=== PATIENT | female | born 1990 | race Caucasian/White ===

== ENCOUNTER 2019-12-03 10:25 | Outpatient (CLI) | payer BC, SELFPAY ==
[2019-12-03] VITALS (7 sets, daily range): BP systolic 124–137; BP diastolic 76–95; PULSE 86–96
[2019-12-03 11:33] LABS: Basophils Percent Auto 0.3 % (0.2-1.2); Eosinophils Absolute Auto 0.1 K/mm3 (0-0.3); Eosinophils Percent Auto 0.5 % (0-4.4); Hemoglobin 11.6 g/dL (12.0-15.0); Immature Granulocyte Absolute 0.03 K/mm3 (0.00-0.031); Immature Granulocyte Percent A 0.3 % (0-0.5); Lymphocytes Percent Auto 24.2 % (18.3-44.2); Mean Corpuscular HGB Conc 33.1 g/dl (32-36); Mean Corpuscular Hemoglobin 29.4 pg (26-34); Mean Corpuscular Volume 88.6 fl (80-100); Mean Platelet Volume 11.8 fl (7.4-10.4); Monocytes Absolute Auto 0.5 K/mm3 (0.1-0.6); Monocytes Percent Auto 5.5 % (2.6-8.5); Neutrophils Absolute Auto 6.6 K/mm3 (1.3-6.7); Neutrophils Percent Auto 69.2 % (45.5-73.1); Platelet Count Result 205 k/mm3 (150-375); Red Blood Count 3.95 M/mm3 (4.2-5.4); Red Cell Distribution Width 13.3 % (11.5-14.5); White Blood Count 9.5 K/mm3 (4.5-10.0)
[2019-12-03 11:39] LABS: Add Urine Microscopic? YES; Appearance Urine Cloudy (Clear); Bacteria Urine 3+ /hpf; Bilirubin Urine Negative (Negative); Blood Urine Negative (Negative); Color Urine Yellow (Yellow); Glucose Urine UA 2+ mg/dL (Negative); Ketones Urine 1+ mg/dL (Negative); Leukocyte Esterase Ur Negative LEU/UL (NEGATIVE); Mucus Urine Moderate /lpf; Nitrate Urine Negative (Negative); Protein Urine 1+ mg/dL (Negative); RBC Urine 0-2 /hpf (0-2); Specific Grav Ur 1.019 (1.001-1.035); Squamous Epithelial Cell Urine Many /hpf (Few); Urobilinogen Urine Negative mg/dL (<2.0)
[2019-12-03 11:51] LABS: Alanine Aminotransferase 8 U/L (4-35); Albumin Level 3.5 g/dL (3.5-5.1); Alkaline Phosphatase 73 U/L (38-126); Aspartate Amino Transferase 15 U/L (14-36); Bilirubin,Total 0.6 mg/dL (0.2-1.3); Blood Urea Nitrogen 8 mg/dL (7-17); Carbon Dioxide 26 mmol/L (22-30); Chloride 103 mmol/L (98-107); Estimated Glomerular Filt Rate > 60; Glucose 124 mg/dL (65-105); Potassium 4.1 mmol/L (3.4-5.0); Sodium 133 mmol/L (137-145); Uric Acid 3.5 mg/dL (2.5-7.5)
--- NOTE | 2019-12-03 12:25 | PC.NURSE ---
Called Dr. Vivar with pt status. Informed of lab results, BPs. One contraction seen on monitor. Reactive tracing. States that she is starting to get a headache, but believes it is because she is hungry. Denies any other preeclamptic symptoms.
== END 2019-12-03 12:30 | disposition home or self-care (01) ==
LOC: ANHOBOP 10:28 → ANHOBPP 10:30
PROVIDERS: PCP Internal Medicine; Visit Provider Obstetrics & Gynecology
DX: O13.9 Gestational [pregnancy-induced] hypertension without significant proteinuria, unspecified trimester (principal); Z3A.00 Weeks of gestation of pregnancy not specified
CPT/HCPCS: 36415; 59025; 80053; 81001; 84550; 85025; 87086; 87088; 99199

== ENCOUNTER 2019-12-11 07:54 | Outpatient (RCR) | payer BC, SELFPAY ==
[2019-12-11 08:03] VITALS: BMI 34.9
[2019-12-11 08:12] VITALS: BMI 34.9
== END 2020-03-10 23:59 | disposition home or self-care (01) ==
LOC: ANHDMC 07:54
PROVIDERS: PCP Internal Medicine; Visit Provider Internal Medicine
DX: O24.410 Gestational diabetes mellitus in pregnancy, diet controlled (principal); Z71.3 Dietary counseling and surveillance; Z71.89 Other specified counseling; Z3A.30 30 weeks gestation of pregnancy
CPT/HCPCS: 97802; G0108

== ENCOUNTER 2020-01-13 08:55 | Outpatient (RCR) | payer BC, SELFPAY ==
[2019-12-23 12:54] VITALS: BP 145/97; PULSE 87
[2019-12-30 17:13] VITALS: BP 152/91; PULSE 78
[2020-01-07 13:03] VITALS: BP 163/98; PULSE 84
[2020-01-13 10:12] LABS: Basophils Percent Auto 0.2 % (0.2-1.2); Eosinophils Percent Auto 0.4 % (0-4.4); Hematocrit 39.9 % (37.0-47.0); Hemoglobin 13.7 g/dL (12.0-15.0); Immature Granulocyte Absolute 0.02 K/mm3 (0.00-0.031); Immature Granulocyte Percent A 0.2 % (0-0.5); Lymphocytes Absolute Auto 2.76 K/mm3 (0.9-3.2); Lymphocytes Percent Auto 33.2 % (18.3-44.2); Mean Corpuscular HGB Conc 34.3 g/dl (32-36); Mean Corpuscular Hemoglobin 29.5 pg (26-34); Mean Platelet Volume 12.7 fl (7.4-10.4); Monocytes Absolute Auto 0.6 K/mm3 (0.1-0.6); Monocytes Percent Auto 6.7 % (2.6-8.5); Neutrophils Absolute Auto 4.9 K/mm3 (1.3-6.7); Neutrophils Percent Auto 59.3 % (45.5-73.1); Platelet Count Result 142 k/mm3 (150-375); Red Blood Count 4.64 M/mm3 (4.2-5.4); Red Cell Distribution Width 13.4 % (11.5-14.5); White Blood Count 8.3 K/mm3 (4.5-10.0)
[2020-01-13 10:17] LABS: Add Urine Microscopic? YES; Appearance Urine Clear (Clear); Bacteria Urine 3+ /hpf; Bilirubin Urine Negative (Negative); Blood Urine Negative (Negative); Color Urine Straw (Yellow); Glucose Urine UA Negative (Negative); Ketones Urine Negative (Negative); Leukocyte Esterase Ur Negative LEU/UL (NEGATIVE); Nitrate Urine Negative (Negative); Protein Urine 2+ mg/dL (Negative); RBC Urine 0-2 /hpf (0-2); Squamous Epithelial Cell Urine Rare /hpf (Few); Urobilinogen Urine Negative mg/dL (<2.0); WBC Urine 0-3 /hpf (0-3)
[2020-01-13 10:25] LABS: Creatinine Urine 63.4 mg/dL
[2020-01-13 10:29] LABS: Alanine Aminotransferase 24 U/L (4-35); Albumin Level 3.3 g/dL (3.5-5.1); Alkaline Phosphatase 143 U/L (38-126); Aspartate Amino Transferase 38 U/L (14-36); Bilirubin,Total 0.5 mg/dL (0.2-1.3); Blood Urea Nitrogen 15 mg/dL (7-17); Calcium 8.9 mg/dL (8.4-10.2); Carbon Dioxide 23 mmol/L (22-30); Chloride 103 mmol/L (98-107); Estimated Glomerular Filt Rate > 60; Glucose 92 mg/dL (65-105); Potassium 3.9 mmol/L (3.4-5.0); Sodium 131 mmol/L (137-145); Uric Acid 5.8 mg/dL (2.5-7.5)
[2020-01-13 10:42] LABS: Total Protein Urine Random 236 mg/dL
[2020-01-13 10:45] VITALS: BP 167/98; PULSE 84
== END 2020-01-16 08:01 | disposition home or self-care (01) ==
LOC: ANHOBOP 08:55
PROVIDERS: PCP Internal Medicine; Visit Provider Obstetrics & Gynecology
DX: O24.419 Gestational diabetes mellitus in pregnancy, unspecified control (principal); O13.3 Gestational [pregnancy-induced] hypertension without significant proteinuria, third trimester; Z3A.32 32 weeks gestation of pregnancy; Z3A.33 33 weeks gestation of pregnancy; Z3A.34 34 weeks gestation of pregnancy; Z3A.35 35 weeks gestation of pregnancy
CPT/HCPCS: 36415; 59025; 80053; 81001; 82570; 84156; 84550; 85025; 87086

== ENCOUNTER 2020-01-15 02:00 | Inpatient (IN) | payer BC, SELFPAY ==
[2020-01-15] VITALS (139 sets, daily range): BP systolic 134–178; BP diastolic 79–113; PULSE 66–109; RESP 12–20; TEMP 36.3–37.1; O2SAT 91–100; BMI 36.2
--- NOTE | 2020-01-15 02:30 | PC.NURSE ---
pt states pt had a previous c/s r/t pre-eclampsia around 35 weeks of gestation. pt states pt has been dx w gdm and pt has been able to manage gdm w diet. pt states pt has had history of high bp during this and pt has been taking procardia 90mg xl daily as prescribed. pt denies any additional medical history. pt states pt brought in 24 hour urine protein specimen on 01/13 and has not heard back about results of test. pt states pt has had high bp during , but up until 01/14 has been asymptomatic.
[2020-01-15 03:47] LABS: Basophils Percent Auto 0.3 % (0.2-1.2); Eosinophils Percent Auto 0.2 % (0-4.4); Hematocrit 41.5 % (37.0-47.0); Hemoglobin 14.4 g/dL (12.0-15.0); Immature Granulocyte Absolute 0.02 K/mm3 (0.00-0.031); Immature Granulocyte Percent A 0.2 % (0-0.5); Lymphocytes Percent Auto 20.3 % (18.3-44.2); Mean Corpuscular HGB Conc 34.7 g/dl (32-36); Mean Corpuscular Hemoglobin 29.4 pg (26-34); Mean Corpuscular Volume 84.7 fl (80-100); Mean Platelet Volume 12.3 fl (7.4-10.4); Monocytes Absolute Auto 0.6 K/mm3 (0.1-0.6); Neutrophils Absolute Auto 8.4 K/mm3 (1.3-6.7); Platelet Count Result 133 k/mm3 (150-375); Red Cell Distribution Width 13.4 % (11.5-14.5); White Blood Count 11.3 K/mm3 (4.5-10.0)
[2020-01-15 03:52] LABS: Add Urine Microscopic? YES; Appearance Urine Clear (Clear); Bacteria Urine 3+ /hpf; Bilirubin Urine Negative (Negative); Blood Urine Negative (Negative); Color Urine Yellow (Yellow); Glucose Urine UA Negative (Negative); Ketones Urine Negative (Negative); Leukocyte Esterase Ur Negative LEU/UL (NEGATIVE); Mucus Urine Rare /lpf; Nitrate Urine Negative (Negative); Protein Urine 3+ mg/dL (Negative); Specific Grav Ur 1.024 (1.001-1.035); Squamous Epithelial Cell Urine Rare /hpf (Few); Urobilinogen Urine Negative mg/dL (<2.0)
[2020-01-15 03:59] LABS: Alanine Aminotransferase 101 U/L (4-35); Albumin Level 3.2 g/dL (3.5-5.1); Alkaline Phosphatase 152 U/L (38-126); Aspartate Amino Transferase 144 U/L (14-36); Blood Urea Nitrogen 18 mg/dL (7-17); Calcium 9.1 mg/dL (8.4-10.2); Carbon Dioxide 22 mmol/L (22-30); Chloride 104 mmol/L (98-107); Estimated Glomerular Filt Rate > 60; Glucose 103 mg/dL (65-105); Sodium 133 mmol/L (137-145); Uric Acid 6.4 mg/dL (2.5-7.5)
[2020-01-15 04:00] LABS: Creatinine Urine 131.5 mg/dL
[2020-01-15 04:44] LABS: Total Protein Urine Random > 600 mg/dL
[2020-01-15] MEDS: LACTATED RINGERS 1,000 ML 75 ML IV CONT (04:45)
--- NOTE | 2020-01-15 05:03 | PC.NURSE ---
rn called pharmacy to discuss administration instructions for 4g magnesium bolus. protocol reviewed for magnesium sulfate administration. 4g mag bolus is to be administered in 30 minutes. alicia from pharmacy confirmed that he would change 4g mag bolus to be administered over 30 minutes.
[2020-01-15] MEDS: MAGNESIUM SULF 4 GM/WATER100ML 4 GM/100 ML BAG IVPB (05:23)
--- NOTE | 2020-01-15 05:33 | WPDANESEPP ---
Anes - Eval Pre Procedure Procedure: Repeat C section Date/Time: 01/15/20 05:33 Surgeon: kristin Preop Diagnosis: Pre eclampsia Pre Op Diagnosis: PIH evaluation Patient Data Age: 29 Gender: F Height: 5 ft 7 in Weight: 105 kg Last Vital Signs Pulse 82 01/15/20 05:25 BP 178/105 H 01/15/20 05:25 Pulse Ox 99 01/15/20 05:33 Allergies Allergy/AdvReac Type Severity Reaction Status Date / Time No Known Allergies Allergy Unverified 02/29/16 19:07 Home Medications Medication Instructions Recorded Confirmed Type fluoxetine [Prozac] 20 mg PO DAILY 01/15/20 01/15/20 History levothyroxine [Synthroid] 100 mcg PO DAILY 01/15/20 01/15/20 History nifedipine [Procardia XL] 90 mg PO DAILY 01/15/20 01/15/20 History Laboratory Tests 01/15/20 01/15/20 01/15/20 03:37 03:37 03:37 WBC 11.3 K/mm3 H K/mm3 (4.5-10.0) RBC 4.90 M/mm3 M/mm3 (4.2-5.4) Hgb 14.4 g/dL g/dL (12.0-15.0) Hct 41.5 % % (37.0-47.0) MCV 84.7 fl fl (80-100) MCH 29.4 pg pg (26-34) MCHC 34.7 g/dl g/dl (32-36) RDW 13.4 % % (11.5-14.5) Plt Count 133 k/mm3 L k/mm3 (150-375) MPV 12.3 fl H fl (7.4-10.4) Immature Gran % (Auto) 0.2 % % (0-0.5) Neut % (Auto) 74.0 % H % (45.5-73.1) Lymph % (Auto) 20.3 % % (18.3-44.2) Story % (Auto) 5.0 % % (2.6-8.5) Eos % (Auto) 0.2 % % (0-4.4) Baso % (Auto) 0.3 % % (0.2-1.2) Lymph # (Auto) 2.30 K/mm3 K/mm3 (0.9-3.2) Story # (Auto) 0.6 K/mm3 K/mm3 (0.1-0.6) Eos # (Auto) 0.0 K/mm3 K/mm3 (0-0.3) Baso # (Auto) 0.0 K/mm3 K/mm3 (0.0-0.1) Abs Immat Gran (auto) 0.02 K/mm3 K/mm3 (0.00-0.031) Absolute Neuts (auto) 8.4 K/mm3 H K/mm3 (1.3-6.7) Absolute Nucleated RBC 0.0 K/mm3 K/mm3 (0.0-0.012) Nucleated RBC % 0.0 % % (0.0-0.2) Sodium Potassium Chloride Carbon Dioxide BUN Creatinine Estim Creat Clear Calc Estimated GFR Glucose Uric Acid Calcium Total Bilirubin AST ALT Alkaline Phosphatase Total Protein Albumin Urine Color Yellow (Yellow) Urine Appearance Clear (Clear) Urine pH 6.0 (5.0-9.0) Ur Specific [place] 1.024 (1.001-1.035) Urine Protein 3+ mg/dL H mg/dL (Negative) Urine Glucose (UA) Negative mg/dL mg/dL (Negative) Urine Ketones Negative mg/dL mg/dL (Negative) Ur Blood (Man) Negative (Negative) Urine Nitrate Negative (Negative) Urine Bilirubin Negative (Negative) Urine Urobilinogen Negative mg/dL mg/dL (<2.0) Ur Leukocyte Esterase Negative TOM/UL TOM/UL (NEGATIVE) Urine RBC 3-5 /hpf H /hpf (0-2) Urine WBC 7-9 /hpf H /hpf (0-3) Ur Squamous Epith Cells Rare /hpf /hpf (Few) Urine Bacteria 3+ /hpf H /hpf Hyaline Casts 1-2 /lpf /lpf (None) Urine Mucus Rare /lpf /lpf U Random Total Protein > 600 mg/dL mg/dL Urine Creatinine 131.5 mg/dL mg/dL 01/15/20 03:37 WBC RBC Hgb Hct MCV MCH MCHC RDW Plt Count MPV Immature Gran % (Auto) Neut % (Auto) Lymph % (Auto) Story % (Auto) Eos % (Auto) Baso % (Auto) Lymph # (Auto) Story # (Auto) Eos # (Auto) Baso # (Auto) Abs Immat Gran (auto) Absolute Neuts (auto) Absolute Nucleated RBC Nucleated RBC % Sodium 133 mmol/L L mmol/L (137-145) Potassium 4.0 mmol/L mmol/L (3.4-5.0) Chloride 104 mmol/L mmol/L (98-107
[2020-01-15] MEDS: MAGNESIUM SULF 20GM/WATER500ML 500 ML 50 MG IV CONT ×2 (05:53→16:06)
--- NOTE | 2020-01-15 06:40 | WPDANESEFPP ---
Anes - Eval Final PreProcedure Day of Procedure 01/15/20 06:40 Patient weight: obese Heart: regular rate and rhythm Lungs: clear to auscultation Airway: Mallampati scale class II Neurological: alert and oriented Last oral intake: >/= 8 hours ASA classification: III Emergent: no Anesthetic plan: proceed Anesthesia type and monitoring: regional spinal and standard monitoring Informed Consent: The patient's anesthetic plan and its attendant risks and benefits were discussed with the patient/family/POA. Questions were solicited and answers provided to the satisfaction of the patient/family/POA.
[2020-01-15 06:49] LABS: Glucose Point of Care 97 (65-105)
--- NOTE | 2020-01-15 06:49 | PM.IMHP ---
H&P: HPI History of Present Illness Chief complaint: PIH evaluation Narrative: 29-year-old 2 para 0101 at 35 and 2 7th weeks gestation based on 8 week ultrasound which gives her due date of 02/17/2020. This is not consistent with her last menstrual period. Her has been complicated by chronic hypertension, well controlled A1 diabetes, hypothyroidism, anxiety, and an intermittent arrhythmia. We have been treating her blood pressure with nifedipine XL 90 mg p.o. daily. She has had good glycemic control with diet. Ultrasound exam at 32 weeks demonstrated estimated weight of 4 lb 1 oz. She has had subsequent ultrasound evaluations with perinatology to evaluate the arrhythmia and that workup has been negative. A 24hour urine collection was just completed and resulted at 7000 mg of protein. The patient woke up this morning with a mild headache, no visual field change, but with mid epigastric and right upper quadrant pain radiating to her back. She came to Labor and delivery and was diagnosed with severe preeclampsia superimposed on her chronic hypertension. I have offered her a repeat delivery. In addition, the patient is interested in permanent contraception with tubal ligation. Review of Systems Review of Systems: All systems reviewed & are unremarkable except as noted in HPI and below PMFSH Past Medical History Medical History (Updated 01/15/20 @ 06:56 by Galo Vivar MD) Anxiety Gestational diabetes Gestational HTN Hypothyroidism Morbid obesity Pre-eclampsia and not yet delivered Surgical History Surgical History History of delivery Social History Social History Smoking status: Never smoker Substance use: never Gender identity (if verbalized by the patient): Female Spiritual care concerns: No Meds Home Medications and Allergies Home Medications Medication Instructions Recorded Confirmed Type fluoxetine [Prozac] 20 mg PO DAILY 01/15/20 01/15/20 History levothyroxine [Synthroid] 100 mcg PO DAILY 01/15/20 01/15/20 History nifedipine [Procardia XL] 90 mg PO DAILY 01/15/20 01/15/20 History Allergies Allergy/AdvReac Type Severity Reaction Status Date / Time No Known Allergies Allergy Unverified 02/29/16 19:07 Vital Signs Vital Signs - 24 hr 01/15/20 03:43 01/15/20 03:48 01/15/20 03:53 Temperature Pulse Rate 83 Respiratory Rate Blood Pressure 178/110 H Pulse Oximetry 99 100 100 01/15/20 03:58 01/15/20 04:01 01/15/20 04:03 Temperature Pulse Rate 88 Respiratory Rate Blood Pressure 172/111 H Pulse Oximetry 100 99 01/15/20 04:08 01/15/20 04:13 01/15/20 04:16 Temperature Pulse Rate 76 Respiratory Rate Blood Pressure 171/107 H Pulse Oximetry 100 99 01/15/20 04:18 01/15/20 04:23 01/15/20 04:28 Temperature Pulse Rate Respiratory Rate Blood Pressure Pulse Oximetry 99 99 100 01/15/20 04:31 01/15/20 04:33 01/15/20 04:38 Temperature Pulse Rate 79 Respiratory Rate Blood Pressure 170/107 H Pulse Oximetry 100 99 01/15/20 05:23 01/15/20 05:25 01/15/20 05:33 Temperature 36.9 C Pulse Rate 82 Respiratory Rate 16 Blood Pressure 178/105 H Pulse Oximetry 99 01/15/20 05:38 01/15/20 05:43 01/15/20 05:46 Temperature Pulse Rate 93 Respiratory Rate Blood Pressure 167/102 H Pulse Oximetry 100 98 01/15/20 05:48 01/15/20 05:53 01/15/20 05:57 Temperature 36.9 C Pulse Rate 85 Respiratory Rate 15 Blood Pressure 169/101 H Pulse Oximetry 99 98 01/15/20 05:58 01/15/20 06:03 01/15/20 06:08 Temperature Pulse Rate Respiratory Rate Blood Pressure Pulse Oximetry 99 98 98 01/15/20 06:13 01/15/20 06:16 01/15/20 06:17 Temperature Pulse Rate 90 Respiratory Rate Blood Pressure 172/102 H
[2020-01-15] MEDS: ceFAZolin 2 GM/D5W 50 ML 2 GM/50 ML BAG IVPB (06:58)
--- NOTE | 2020-01-15 08:03 | PM.OBPRVD ---
OB - Delivery Note Procedure Delivery date: 01/15/20 Procedure: Procedures Operation Date: 01/15/20 07:00 <No data on this case meets the specified criteria> Repeat low transverse delivery with bilateral tubal ligation via modified Brown technique. events: Gestational Diabetes and Pre-Eclampsia Route of delivery: (LTCS with BTL) Specimen: Yes (cord blood, placenta, segments of bilateral Fallopian tubes) Estimated blood loss (mL): 300 Anesthesia type: Spinal Disposition: PACU Complications: None Narrative: The patient was taken to the operating room where she was prepared and draped in the usual sterile fashion in dorsal supine position with a leftward tilt. She received cefazolin preoperatively. Spinal anesthesia was found to be adequate. A Pfannenstiel skin incision was made along the previous scar line and was carried through to the underlying layer of the fascia. The fascia was incised in the midline and the incision was extended laterally. The fascia was dissected free of the underlying rectus muscles. The rectus muscles were in the midline. The peritoneum was identified, tented up and entered sharply. The peritoneal incision was extended superiorly and inferiorly with good visualization of the bladder. The bladder blade was placed. The vesicouterine peritoneum was identified, tented up and entered sharply. The incision was extended laterally and the bladder flap was developed. The bladder blade was replaced. The uterus was then incised sharply in a transverse fashion along the lower uterine segment. The incision was extended laterally. The infant's head was delivered atraumatically to the sterile field, followed by the body. The nose and mouth were bulb suctioned. After a delay, the cord was clamped and cut. The was handed off the field. Cord blood was collected. The placenta was removed manually and was passed off the field. The uterus was exteriorized and cleared of all clots and debris. The uterine incision was reapproximated using 0 Monocryl in a running, locked fashion. Excellent hemostasis resulted as did excellent reapproximation of the normal anatomy. The left fallopian tube was then identified by following it out to the fimbriated end. It was grasped in the midportion with a [place] clamp and a loop of tube was ligated with a free tie of 0 plain gut. The tubal segment was then transected and the specimen was passed off to be sent to pathology. Hemostasis was excellent. Attention was turned to the right fallopian tube which was similarly identified, ligated and transected. Once again, excellent hemostasis resulted. The uterus was returned the abdomen. The pelvis was irrigated copiously with warmed normal saline. Rigorous hemostasis was assured. The fascial layer was reapproximated using 0 Vicryl in a running fashion. The skin was closed with a running, subcuticular stitch of 4 0 Vicryl. Dermaflex was applied externally. Sponge, lap, needle and instrument counts were correct. The patient was taken to the recovery room in stable condition. The went to the nursery. I was present and scrubbed the entire procedure. Baby Date of : 01/15/20 Time of : 07:24 Weeks of gestation at delivery: 35 Infant gender: Male Weight (pounds): 5 Weight (ounces): 12 presentation: vertex Placenta delivery description: Manual Removal and Normal Configuration cord vessel description: 3 Vessels and Nuchal Cord score one minute: 3 score five minutes: 8
--- NOTE | 2020-01-15 08:06 | PM.OBDSVD ---
DS: Admitting Diagnosis Admitting Diagnosis Admitting Diagnosis: IUP at 35 2/7 weeks Headache RUQ / midepigastric pain Chronic HTN with superimposed severe preeclampsia A1DM Prior Desired sterility <Galo Vivar MD - Last Filed: 02/02/20 12:27> DS: Discharge Diagnosis Discharge Diagnosis (1) Unwanted fertility: Code(s): Z30.09 - Encounter for other general counseling and advice on contraception <Galo Vivar MD - Last Filed: 02/02/20 12:27> Status: Acute <Galo Vivar MD - Last Filed: 02/02/20 12:27> (2) History of delivery: Code(s): Z98.891 - History of uterine scar from previous surgery <Galo Vivar MD - Last Filed: 02/02/20 12:27> Status: Acute <Galo Vivar MD - Last Filed: 02/02/20 12:27> (3) Chronic hypertension affecting : Code(s): O10.919 - Unspecified pre-existing hypertension complicating , unspecified trimester <Galo Vivar MD - Last Filed: 02/02/20 12:27> Status: Acute <Galo Vivar MD - Last Filed: 02/02/20 12:27> (4) Gestational diabetes: Code(s): O24.419 - Gestational diabetes mellitus in , unspecified control <Galo Vivar MD - Last Filed: 02/02/20 12:27> Status: Acute <Galo Vivar MD - Last Filed: 02/02/20 12:27> (5) Pre-eclampsia: Code(s): O14.90 - Unspecified pre-eclampsia, unspecified trimester <Galo Vivar MD - Last Filed: 02/02/20 12:27> Status: Acute <Galo iVvar MD - Last Filed: 02/02/20 12:27> OB - DS: Summary OB Procedures : PIH Mgmt <Jonn Cotton MD - Last Filed: 01/17/20 06:47> OB Procedures Intrapartum: <Jonn Cotton MD - Last Filed: 01/17/20 06:47> OB Procedures: : None <Jonn Cotton MD - Last Filed: 01/17/20 06:47> Peripartum Data Procedures: Procedures Operation Date: 01/15/20 07:00 <No data on this case meets the specified criteria> <Galo Vivar MD - Last Filed: 02/02/20 12:27> Time Spent with Patient Time attestation: Total time spent providing and/or coordinating discharge services: <Galo Vivar MD - Last Filed: 02/02/20 12:27> DS: Data Data Completed and Pending Pending studies at discharge: Pending at discharge 01/15/20 07:26 Surgical [PTH] Routine 01/15/20 07:42 Surgical [PTH] Routine <Galo Vivar MD - Last Filed: 02/02/20 12:27> Labs on day of discharge: Labs from last 24 hours 01/15/20 01/15/20 01/15/20 06:44 03:37 03:37 WBC 11.3 H RBC 4.90 Hgb 14.4 Hct 41.5 MCV 84.7 MCH 29.4 MCHC 34.7 RDW 13.4 Plt Count 133 L MPV 12.3 H Immature Gran % (Auto) 0.2 Neut % (Auto) 74.0 H Lymph % (Auto) 20.3 [place] % (Auto) 5.0 Eos % (Auto) 0.2 Baso % (Auto) 0.3 Lymph # (Auto) 2.30 [place] # (Auto) 0.6 Eos # (Auto) 0.0 Baso # (Auto) 0.0 Abs Immat Gran (auto) 0.02 Absolute Neuts (auto) 8.4 H Absolute Nucleated RBC 0.0 Nucleated RBC % 0.0 Sodium 133 L Potassium 4.0 Chloride 104 Carbon Dioxide 22 BUN 18 H Creatinine 0.70 Estim Creat Clear Calc Not Reportable Estimated GFR > 60 Glucose 103 POC Capillary Glucose 97 Uric Acid 6.4 Calcium 9.1 Total Bilirubin 1.0 AST 144 H ALT 101 H Alkaline Phosphatase 152 H Total Protein 6.0 L Albumin 3.2 L Urine Color Urine Appearance Urine pH Ur Specific [place] Urine Protein Urine Glucose (UA) Urine Ketones Ur Blood (Man) Urine Nitrate Urine Bilirubin Urine Urobilinogen Ur Leukocyte Esterase Urine RBC Urine WBC Ur Squamous Epith Cells Urine Bacteria Hyaline Casts Urine Mucus U Random Total Protein Urine Creatinine 01/15/20 01/15/20 03:37 03:37 WBC RBC Hgb Hct MCV MCH
[2020-01-15] MEDS: OXYTOCIN 30 UNITS/NS 500 ML 30 UNITS/500 ML BAG 75 UNITS IV CONT (08:32)
[2020-01-15] MEDS: LABETALOL HCL INJ 100 MG/20 ML VIAL 20 MG IV PUSH (09:09)
[2020-01-15] MEDS: LABETALOL HCL INJ 100 MG/20 ML VIAL 40 MG IV PUSH (09:26)
[2020-01-15] MEDS: LABETALOL HCL INJ 100 MG/20 ML VIAL 80 MG IV PUSH ×2 (09:49→10:06)
[2020-01-15] MEDS: LORATADINE 10 MG TABLET PO (11:38)
[2020-01-15] MEDS: LEVOTHYROXINE SODIUM 100 MCG TABLET PO (11:39)
[2020-01-15] MEDS: NIFEdipine 30 MG TAB.ER.24 90 MG PO (11:39)
--- NOTE | 2020-01-15 12:00 | PC.NURSE ---
Patient transferred to post room #292 via wheelchair. Oriented to unit, room, information board, rooming in, admission packet and security measures. Patient verbalizes understanding.
[2020-01-15] MEDS: ONDANSETRON INJ 4 MG/2 ML VIAL IV PUSH ×2 (13:37→19:28)
[2020-01-15] MEDS: DEXTROSE 5%/0.45% SOD CHL 1,000 ML 75 ML IV CONT (16:08)
[2020-01-15] MEDS: DOCUSATE SODIUM 100 MG CAPSULE PO (16:11)
[2020-01-15] MEDS: FLUOXETINE HCL 20 MG CAP 40 MG PO (16:11)
[2020-01-15] MEDS: hydrALAZINE HCL 20 MG/ML VIAL 5 MG IV PUSH (17:47)
[2020-01-15] MEDS: KETOROLAC 30 MG/ML VIAL (*BKC) IV PUSH (19:41)
[2020-01-15] MEDS: NIFEdipine 30 MG TAB.ER.24 60 MG PO (21:35)
--- NOTE | 2020-01-15 23:22 | PC.NURSE ---
174 Pt received Benadryl 25mg IVP for c/o nausea. Good relief reported. 1746 Hydralazine 5mg IVP given as ordered. 190 pt attempted to take some of her clear liquid diet; not tolerated well and had emesis of 400cc yellow liquid. 1927 Zofran 4mg IVP given for nausea and vomiting. 1940 Toradol given for pt's c/o pain, with good relief, pt able to rest.
--- NOTE | 2020-01-15 23:43 | PC.NURSE ---
1750 pt checked her own blood sugar with her glucometer; result 107; she reports she had GDM and was diet controlled.
[2020-01-16] MEDS: MAGNESIUM SULF 20GM/WATER500ML 500 ML 50 MG IV CONT (01:59)
[2020-01-16] MEDS: ACETAMINOPHEN 325 MG TABLET 650 MG PO (02:05)
[2020-01-16 02:15] VITALS: BP 148/89; PULSE 90
[2020-01-16 04:45] VITALS: BP 150/89; PULSE 79; RESP 14; TEMP 36.6
[2020-01-16] MEDS: DEXTROSE 5%/0.45% SOD CHL 1,000 ML 75 ML IV CONT (04:45)
[2020-01-16] MEDS: KETOROLAC 30 MG/ML VIAL (*BKC) IV PUSH (04:52)
[2020-01-16 05:33] LABS: Basophils Percent Auto 0.3 % (0.2-1.2); Eosinophils Percent Auto 0.3 % (0-4.4); Hematocrit 38.8 % (37.0-47.0); Hemoglobin 13.3 g/dL (12.0-15.0); Immature Granulocyte Absolute 0.03 K/mm3 (0.00-0.031); Immature Granulocyte Percent A 0.3 % (0-0.5); Lymphocytes Absolute Auto 3.66 K/mm3 (0.9-3.2); Mean Corpuscular HGB Conc 34.3 g/dl (32-36); Mean Corpuscular Hemoglobin 28.9 pg (26-34); Mean Corpuscular Volume 84.2 fl (80-100); Mean Platelet Volume 12.3 fl (7.4-10.4); Monocytes Absolute Auto 0.6 K/mm3 (0.1-0.6); Monocytes Percent Auto 5.2 % (2.6-8.5); Neutrophils Absolute Auto 7.5 K/mm3 (1.3-6.7); Neutrophils Percent Auto 62.9 % (45.5-73.1); Platelet Count Result 108 k/mm3 (150-375); Red Blood Count 4.61 M/mm3 (4.2-5.4); Red Cell Distribution Width 13.6 % (11.5-14.5); White Blood Count 11.8 K/mm3 (4.5-10.0)
[2020-01-16 05:54] LABS: Alanine Aminotransferase 75 U/L (4-35); Albumin Level 3.2 g/dL (3.5-5.1); Alkaline Phosphatase 145 U/L (38-126); Aspartate Amino Transferase 94 U/L (14-36); Bilirubin,Total 0.7 mg/dL (0.2-1.3); Blood Urea Nitrogen 8 mg/dL (7-17); Calcium 6.8 mg/dL (8.4-10.2); Carbon Dioxide 30 mmol/L (22-30); Chloride 99 mmol/L (98-107); Estimated CRCL calculation 144 ml/min; Estimated Glomerular Filt Rate > 60; Glucose 95 mg/dL (65-105); Potassium 3.8 mmol/L (3.4-5.0); Sodium 130 mmol/L (137-145)
[2020-01-16] MEDS: LEVOTHYROXINE SODIUM 100 MCG TABLET PO (07:12)
[2020-01-16 07:30] VITALS: BP 149/95; PULSE 80; RESP 16; TEMP 36.8; O2SAT 99
--- NOTE | 2020-01-16 07:30 | WPDANLDNPN2 ---
Anes-Prog Note L&D-Neuraxial Date/Time: 01/16/20 07:30 Neuraxial medications: intrathecal PF morphine Opiod-related complaints: none Patient feedback: Patient satisfied with post-operative pain management.
--- NOTE | 2020-01-16 07:30 | WPDANLDPN2 ---
Anes-Prog Note L&D Date/Time: 01/16/20 07:30 Comfortable throughout: section Neuraxial method: spinal Epidural/Spinal procedure site: clean & non-tender Neuro status: Neuro function grossly intact. Cardiovascular status: normal Respiratory status: normal Airway patency: baseline Mental status: baseline Post-Op hydration status: normal Vital Signs: Last Vital Signs Temp 36.6 C 01/16/20 04:45 Pulse 79 01/16/20 04:45 Resp 14 01/16/20 04:45 BP 150/89 H 01/16/20 04:45 Pulse Ox 98 01/15/20 22:45 I/O: Intake & Output 01/15/20 01/15/20 01/16/20 15:59 23:59 07:59 Intake Total 120 1228 362 Output Total [phone] [facility] [phone] Post-procedural complaints: none Patient feedback: Patient satisfied with anesthetic care.
--- NOTE | 2020-01-16 08:03 | P.PNOB_ITS ---
OB - PN: Subj Subjective Date/time seen: 01/16/20 08:03 Interval history: 29 yo F POD #1 from C/S at 35w for Severe Preeclampsia. She has been on magnesium sulfate overnight. Pt required IV antihypertensives and PO medications overnight. She reports a persistent CHAVEZ, nausea, and vision changes from the magnesium. She denies any RUQ pain or change in swelling. She has not ambulated out of bed yet. Her shultz catheter is in place with clear urine. She denies any SOB or chest pain. She has not yet tolerated PO. She reports adequate pain control Patient comments: pain well controlled baby status: NICU OB - PN: Obj Data Labs CBC & Chem 7: 01/16/20 05:12 01/16/20 05:12 Labs: Laboratory Results - last 24 hr 01/16/20 01/16/20 05:12 05:12 WBC 11.8 H RBC 4.61 Hgb 13.3 Hct 38.8 MCV 84.2 MCH 28.9 MCHC 34.3 RDW 13.6 Plt Count 108 L MPV 12.3 H Immature Gran % (Auto) 0.3 Neut % (Auto) 62.9 Lymph % (Auto) 31.0 [place] % (Auto) 5.2 Eos % (Auto) 0.3 Baso % (Auto) 0.3 Lymph # (Auto) 3.66 H [place] # (Auto) 0.6 Eos # (Auto) 0.0 Baso # (Auto) 0.0 Abs Immat Gran (auto) 0.03 Absolute Neuts (auto) 7.5 H Absolute Nucleated RBC 0.0 Nucleated RBC % 0.0 Sodium 130 L Potassium 3.8 Chloride 99 Carbon Dioxide 30 BUN 8 D Creatinine 0.60 L Estim Creat Clear Calc 144 Estimated GFR > 60 Glucose 95 Calcium 6.8 L Total Bilirubin 0.7 AST 94 H ALT 75 H Alkaline Phosphatase 145 H Total Protein 6.0 L Albumin 3.2 L OB - PN A/P Plan day: 1 Comments: will d/c magnesiusm sulfate today continue Procardia XL BID BP mild range, continue to monitor will add labetalol PO if BP not controlled off of magnesium d/c shultz once ambulating advance diet as tolerated will add scopolamine for nausea pain control adequate continue routine care anticipate d/c home tomorrow if BP controlled. Time Spent With Patient Time: Total time spent is greater than 50% in coordination of care (as documented) at patient's floor/unit and/or counseling patient: Review of Systems Review of Systems: All systems reviewed & are unremarkable except as noted in HPI and below Exam Const: General: comfortable and no acute distress Resp: Effort & Inspection: normal respiratory effort Auscultation: clear to auscultation bilaterally Cardio: Rate: regular rate GI: Auscultation: normal bowel sounds Urinary Catheter: Urinary Catheter: patent and draining and urine clear Extrem: General: pedal edema (1+) bilaterally Psych: Appearance: grossly normal Mental Status: mental status grossly normal Affect: normal affect
[2020-01-16] MEDS: NIFEdipine 30 MG TAB.ER.24 60 MG PO ×2 (09:14→21:01)
[2020-01-16 11:45] VITALS: BP 154/97; PULSE 79; RESP 18; TEMP 37.1; O2SAT 98
[2020-01-16] MEDS: FLUOXETINE HCL 20 MG CAP 40 MG PO (11:56)
[2020-01-16] MEDS: DOCUSATE SODIUM 100 MG CAPSULE PO ×2 (11:57→16:51)
[2020-01-16] MEDS: IBUPROFEN 600 MG TABLET PO ×2 (11:58→20:39)
--- NOTE | 2020-01-16 13:45 | PC.NURSE ---
Consult with pt., mother has chosen to pump and bottle feed. has been transferred to [facility]. Mother reports she had first child early as well and issues with milk supply. Reviewed this situation may be different and previous supply does not dictate she will have low milk supply this time. Discussed the importance of regular stimulation. Instructions given on breast pump care and usage, pumping schedule, nipple care, and collection and storage of breast milk. Encouraged [id number] when is able, breast massage and manual expression to stimulate supply. Assessed patient for correct flange size, placement and draw. Patient verbalizes and demonstrates understanding of instructions. Suggested mother pump as she can with traveling to see and [facility] should have a pump for her to use while visiting with and area for storage of milk. Reviewed regular medications mother is taking. Information provided per [place]. Reviewed community resources on the [facility] website and in the Mom/Baby guide. Information on outpatient services provided. Mother has no further questions at this time.
[2020-01-16 16:00] VITALS: BP 139/83; PULSE 89; RESP 18; O2SAT 99
[2020-01-16 20:45] VITALS: BP 135/84; PULSE 97; RESP 13; TEMP 36.9; O2SAT 98
[2020-01-17 01:10] VITALS: BP 154/88; PULSE 100
[2020-01-17] MEDS: IBUPROFEN 600 MG TABLET PO (05:23)
[2020-01-17 05:50] VITALS: BP 149/95; PULSE 101
[2020-01-17 07:45] VITALS: BP 160/94; PULSE 96; RESP 18; TEMP 36.9; O2SAT 98
[2020-01-17] MEDS: LEVOTHYROXINE SODIUM 100 MCG TABLET PO (08:08)
[2020-01-17] MEDS: DOCUSATE SODIUM 100 MG CAPSULE PO (08:09)
[2020-01-17] MEDS: NIFEdipine 30 MG TAB.ER.24 60 MG PO (08:10)
[2020-01-17] MEDS: FLUOXETINE HCL 20 MG CAP 40 MG PO (08:10)
--- NOTE | 2020-01-17 10:20 | PC.NURSE ---
Education: Mom and Baby Guide Given to: Mother Follow-Up: Call your delivering provider's office for an appointment to be seen in: Sunday Mom and baby should come to the [facility] for the follow-up appointment. Appointment Date/Time: at What to expect at your follow-up visit: Call [phone] if you are unable to keep your appointment time. BREAST CARE: 1. Wear a snug supportive bra. 2. For engorgement discomfort: Breast Feeding: A. Apply warm moist washcloths B. Express milk as needed to relieve engorgement C. Wear loose clothing Bottle Feeding: A. May apply ice packs Patient viewed the discharge video Mother & Baby Care, The First Two Weeks . Patient was given the opportunity and encouraged to ask questions. Patient verbalized understanding of information shared and has been given the mother/baby guide for home reference.
== END 2020-01-17 10:06 | disposition home or self-care (01) | DRG 784 ==
LOC: ANHOBPP 03:56 → ANHLDR 04:48 → ANHOB2 11:55
PROVIDERS: Admitting Provider Obstetrics & Gynecology; PCP Internal Medicine; Visit Provider Obstetrics & Gynecology
PROC: 10D00Z1 Extraction of Products of Conception, Low, Open Approach (ICD-10-PCS; CPT 59514; principal; 2020-01-15 07:00)
DX: O34.211 Maternal care for low transverse scar from previous cesarean delivery (principal); O10.92 Unspecified pre-existing hypertension complicating childbirth; Z30.2 Encounter for sterilization; O14.14 Severe pre-eclampsia complicating childbirth; O24.420 Gestational diabetes mellitus in childbirth, diet controlled; Z3A.35 35 weeks gestation of pregnancy; Z37.0 Single live birth; O69.9XX0 Labor and delivery complicated by cord complication, unspecified, not applicable or unspecified; O99.214 Obesity complicating childbirth; E66.01 Morbid (severe) obesity due to excess calories
CPT/HCPCS: 36415; 80053; 81001; 81050; 82570; 82575; 84156; 84550; 85025; 87086; 87088; 88302; A9270; J0131; J0360; J0690; J1200; J1885; J2274; J2370; J2405; J2590; J3010; J3475; J7120

== ENCOUNTER 2024-04-02 10:57 | Outpatient (CLI) | payer BC, SELFPAY ==
--- NOTE | ~2024-04-02 | US_ITS ---
Limited Abdominal Sonogram: Real-time sonographic imaging of the right upper quadrant was performed. Clinical History: Epigastric pain Findings: The liver appears normal with no evidence of mass lesion or bile duct dilatation. Main por boris vein demonstrates normal direction of flow. The gallbladder is well distended, and appears normal with no evidence of gallstone or wall thickening. The common bile duct measures 4 mm. The visualize d pancreas, aorta, and IVC are unremarkable. Right kidney measures 10.6 cm in length, unremarkable. Impression: No significant abnormality seen. Reviewed, dictated and finalized at location . Impression: No significant abnormality seen.
== END 2024-04-02 10:58 ==
PROVIDERS: PCP Physician Assistant Medical; Visit Provider Physician Assistant Medical
DX: R10.13 Epigastric pain (principal)
CPT/HCPCS: 76705

== ENCOUNTER 2025-07-16 12:20 | Outpatient (CLI) | payer BC, SELFPAY ==
[2025-07-17 10:08] LABS: FSH 2.7 mIU/mL (.); LH 4.3 mIU/mL (.)
[2025-07-20 16:08] LABS: Estradiol, Sensitive 186.7 pg/mL (.)
== END 2025-07-16 12:21 | disposition home or self-care (01) ==
LOC: ANHLAB 12:21
PROVIDERS: PCP Physician Assistant Medical; Visit Provider Obstetrics & Gynecology
DX: N92.6 Irregular menstruation, unspecified (principal)
CPT/HCPCS: 82670; 83001; 83002; 84144